=== PATIENT | male | born 1960 | race Caucasian/White ===

== ENCOUNTER 2021-02-04 18:29 | Emergency (ER) | payer MEDICAID, OTHER ==
[~2021-02-04] VITALS: Ht 177.8 cm; Wt 69.6 kg
--- NOTE | 2021-02-04 19:54 | NUR ---
PT TO ROOM FROM LOBBY
[2021-02-04] MEDS ORDERED: SODIUM CHLORIDE FLUSH 10ML SYR IVF ONE (20:00)
[2021-02-04] MEDS ORDERED: OMNIPAQUE 350 MG/ML, 100ML BOTTLE ONE (20:00)
[2021-02-04 20:03] LABS: BASOPHILS % (AUTO) 0 % (0-1); EOSINOPHILS % (AUTO) 3 % (1-7); LYMPHOCYTES % (AUTO) 48 % (22-44); MEAN CORPUSCULAR HEMOGLOBIN 27.5 pg (27.5-34.5); MEAN PLATELET VOLUME 8.5 fL (7.4-10.4); MONOCYTES % (AUTO) 11 % (2-9); NEUTROPHILS % (AUTO) 37 % (42-75); PLATELET COUNT 307 x10^3/uL (130-400); RED BLOOD COUNT 3.93 x10^6/uL (4.38-5.82); RED CELL DISTRIBUTION WIDTH 15.6 % (9.4-14.8)
[2021-02-04 20:05] LABS: MD NO
[2021-02-04 20:10] LABS: ALANINE AMINOTRANSFERASE 41 U/L (12-78); ALBUMIN 3.5 g/dL (3.4-5.0); ANION GAP 4 mmol/L (5-15); CHLORIDE 106 mmol/L (98-107); CREATININE 0.89 mg/dL (0.7-1.3)
[2021-02-04 20:14] LABS: ALKALINE PHOSPHATASE 73 U/L (45-117); BILIRUBIN,TOTAL 0.3 mg/dL (0.2-1.0); TOTAL PROTEIN 7.1 g/dL (6.4-8.2); TROPONIN I < 0.015 ng/mL (0.000-0.045)
--- NOTE | 2021-02-04 20:16 | NUR ---
CC OF NAUSEA X 1 WEEK AND ESOPHAGEAL AND LLQ PAIN INTERMITTENLY FOR 1 MO, WORSE THS LAST WEEK. PAIN IS SOMETIMES IN BETWEEN SHOULDER BLADES. PT STATES HE HAS LOST 5 LBS OVER 1 WEEK AND VOMIT IS "DARKER THEN USUAL", DENIES BLOODY EMESIS AND DENIES DIARRHEA. PT FROM [place], BEEN IN TOWN ABOUT 1 MONTH.
[2021-02-04] MEDS ORDERED: MAALOX/HYOSCYAMINE/LIDOCAINE 45 ML BTL ONE (20:22)
[2021-02-04] MEDS ORDERED: ONDANSETRON 2MG/ML, 2ML ONE (20:22)
[2021-02-04] MEDS ORDERED: MAALOX/HYOSCYAMINE/LIDOCAINE 45 ML BTL PO ONE (20:30)
[2021-02-04] MEDS ORDERED: ONDANSETRON 2MG/ML, 2ML IVPush ONE (20:30)
--- NOTE | 2021-02-04 20:33 | NUR ---
PT TO CT
--- NOTE | 2021-02-04 21:32 | NUR ---
PT REPORTS FEELING BETTER AFTER MEDICATION ADMIN. PT SLEEPING IN GURNEY, AWAKENS EASILY. RESP EVEN AND UNLABORED
[2021-02-04 21:54] LABS: MICROSCOPIC NOT IND
[2021-02-04 23:04] VITALS: BP 130/89
--- NOTE | 2021-02-04 23:07 | NUR ---
Patient/Caregiver given discharge instructions and they have confirmed that they understand the instructions. Patient ambulatory with steady gait.
== END 2021-02-04 23:08 | disposition home or self-care (01) ==
LOC: ED 20:46
DX: R10.32 Left lower quadrant pain (principal); R11.2 Nausea with vomiting, unspecified; R94.31 Abnormal electrocardiogram [ECG] [EKG]; F17.210 Nicotine dependence, cigarettes, uncomplicated
CPT/HCPCS: 36415; 71045; 74177; 80053; 81003; 83690; 84484; 85025; 93005; 96374; 99285; 99406; J2405; Q9967